=== PATIENT | female | born 1945 | race Asian ===

== ENCOUNTER 2016-07-04 07:04 | Day surgery (SDC) | payer OTHER ==
[~2016-07-04] VITALS: Ht 149.9 cm; Wt 63.9 kg
[2016-07-04] VITALS (11 sets, daily range): BP systolic 107–168; BP diastolic 54–75; PULSE 74–83; RESP 12–22; Ht 149.9 cm; Wt 63.9 kg
[~2016-07-04 07:04] MED LIST: ASPI-664 PO; BUPIVACAINE 0.75% (MPF) 10 ML INJ ONE; CYCLOPENTOLATE 2% 2 ML OPH OPER SCH; EPINEPHrine 1 MG INJ ONE; FER325 PO; GEMF600T60 PO; GLIP5TAB13 PO; LIDOCAINE 1% (MPF) 10 ML INJ ONE; LIDOCAINE 2% (SDV) 5 ML INJ ONE; LOSA50TA6 PO; METF1000 PO; MOXIFLOXACIN 0.5% 3 ML OPH OPER SCH; NEPAFENAC 0.1% 3 ML OPH OPER SCH; OXYB5TAB22 PO; PHENYLephrine 10% 5 ML OPH OPER SCH; SODIUM BICARBONATE (IV ADD) 50 ML ONE; TIMOLOL 0.5% 5 ML OPH ONE
[2016-07-04] MEDS ORDERED: MIDAZOLAM 1 MG/ML 2 ML INJ ONE (08:08)
[2016-07-04] MEDS ORDERED: FENTAnyl 50 MCG/ML VIAL ONE (08:08)
[2016-07-04] MEDS ORDERED: hydrALAzine 20 MG INJ IV PRN (08:30)
[2016-07-04] MEDS ORDERED: MEPERIDINE 25 MG INJ IV PRN (08:30)
[2016-07-04] MEDS ORDERED: DIPHENHYDRAMINE 50 MG INJ IV PRN (08:30)
[2016-07-04] MEDS ORDERED: LABETALOL HCL 20MG INJ IV PRN (08:30)
[2016-07-04] MEDS ORDERED: INSULIN ASPART [NOVOLOG] 3 ML PEN SC ONE (08:30)
[2016-07-04] MEDS ORDERED: ONDANSETRON 4 MG INJ IV PRN (08:30)
[2016-07-04] MEDS ORDERED: FENTAnyl 50 MCG/ML VIAL IV PRN (08:30)
[2016-07-04] MEDS ORDERED: OXYCODONE/ACETAMINOPHEN (5/325) TAB PO PRN ×2 (08:30)
[2016-07-04] MEDS ORDERED: PROCHLORPERAZINE 10 MG INJ IV PRN (08:30)
--- NOTE | 2016-07-04 08:42 | HPN ---
Date/Time of Note Date/Time of Note DATE: 07/04/16 TIME: 08:42 Interval H&P Admission Note Pt. seen H&P reviewed: No system changes MARKUS KAN MD Jul 04, 2016 08:42
[2016-07-04] MEDS ORDERED: SODIUM HYALURONATE 10 MG/ML SYG IO ONE (08:50)
[2016-07-04] MEDS ORDERED: LIDOCAINE 1% (MPF) 5 ML VIAL INJ ONE (08:50)
[2016-07-04] MEDS ORDERED: ONDANSETRON 4 MG INJ ONE (09:11)
[2016-07-04] MEDS ORDERED: TIMOLOL 0.5% 5 ML OPH RIGHT EYE ONE (09:34)
--- NOTE | 2016-07-04 19:22 | OPR ---
DATE OF OPERATION: 07/04/2016 SURGEON: Markus Murphy MD [employer] SEAT [employer]KER: None. PREOPERATIVE DIAGNOSIS: Senile nuclear sclerotic cataract, right eye. POSTOPERATIVE DIAGNOSIS: Senile nuclear sclerotic cataract, right eye. OPERATION: Kelman phacoemulsification with implantation of intraocular lens, right eye. PROCEDURE: Following standard preparation and draping of the patient, an aspirating lid speculum wa s placed for immobilization of the lids. A Superblade incision was made for access into the anterior chamber. Approximately 0.5 ml of 1% unpreserved Xylocaine was instilled into the anterior chamber, and after approximately 15 seconds, this was replaced with Viscoat. A clear corneal incision was then made using the 3.2 mm keratome, following which an anterior circul ar capsulorrhexis was made. The major portion of the lens cortex and nucleus was then dislocated fro m the capsular bag using hydrodissection. The KPE tip was introduced into the eye, and controlling m ovements of the lens with a two-handed technique, the major portion of the lens cortex and nucleus w as removed, maintaining the lens in the plane of the iris. The remaining cortical material was remov ed via the irrigating-aspirating instrument. The capsular bag and the anterior chamber were re-forme d using Viscoat. The proper power lens was then placed within the capsular bag. The viscoelastic was then removed from the eye and the eye re-formed with balanced salt solution. One 10-0 Vicryl suture was then used to ensure closure of the corneal incision. The eye was re-forme d to normal pressure using balanced salt solution. The eye and cul-de-sacs were now simply flooded w ith 5% Betadine solution. One drop of Vigamox and one drop of Betagan solution were instilled into the eye. A light pressure d ressing was applied, and the patient was returned to the recovery room in satisfactory condition. Dictated By: MARKUS GILES/TAMMY Conf#: [id number] DID#: [id number]
== END 2016-07-04 11:30 | disposition home or self-care (01) ==
LOC: SDS 07:04
PROVIDERS: ATTEND Ophthalmology
DX: H25.11 Age-related nuclear cataract, right eye (principal); E11.9 Type 2 diabetes mellitus without complications; E78.5 Hyperlipidemia, unspecified; I10 Essential (primary) hypertension; E66.9 Obesity, unspecified; Z68.28 Body mass index [BMI] 28.0-28.9, adult
CPT/HCPCS: 66984; 82962; J0171; J1815; J2250; J2405; J3010; V2632; Z7512; Z7610